=== PATIENT | female | born 1970 | race Caucasian/White ===

== ENCOUNTER 2017-08-17 19:42 | Inpatient (IN) | payer BC, OTHER ==
[~2017-08-17] VITALS: Ht 154.9 cm; Wt 66.2 kg
[~2017-08-17 19:42] MED LIST: NORT25CA PO
[2017-08-17] MEDS ORDERED: LORAZEPAM 1 MG TAB SL STA (19:59)
[2017-08-17 20:13] LABS: BASO % 0.2 %; BASO ABS # 0.03 K/uL (0-0.2); EOS % 1.9 %; EOS ABS # 0.24 K/uL (0-0.5); HEMATOCRIT 39.3 % (37-47); HEMOGLOBIN 14.2 g/dL (12.0-16.0); IG# 0.02 K/uL (0.00-0.02); LYMPH % 33.8 %; LYMPH ABS # 4.21 K/uL (1.2-3.4); MEAN CELL VOLUME 90.3 fL (80-100); MEAN CORPUSCULAR HEMOGLOBIN 32.6 pg (25-34); MEAN CORPUSCULAR HGB CONC 36.1 g/dl (32-36); MEAN PLATELET VOLUME 10.5 fL (7.4-10.4); MONO % 7.7 %; MONO ABS # 0.96 K/uL (0.11-0.59); NEUT % 56.2 %; PLATELET COUNT 277 K/uL (130-400); RED CELL DISTRIBUTION WIDTH SD 42.7 fL (36.4-46.3); WHITE BLOOD COUNT 12.46 K/uL (4.8-10.8)
[2017-08-17 20:49] LABS: ALBUMIN 4.4 gm/dl (3.4-5.0); ALT/SGPT 31 U/L (12-78); AST/SGOT 20 U/L (15-37); BLOOD UREA NITROGEN 9 mg/dl (7-18); CALCIUM 9.3 mg/dl (8.5-10.1); CARBON DIOXIDE 25 mmol/L (21-32); CREATININE 0.82 mg/dl (0.60-1.20); GLUCOSE 93 mg/dl (70-99); POTASSIUM 3.6 mmol/L (3.5-5.1); SODIUM 136 mmol/L (136-145)
[2017-08-17 21:00] LABS: ALKALINE PHOSPHATASE 88 U/L (45-117); TOTAL PROTEIN 8.1 gm/dl (6.4-8.2)
--- NOTE | 2017-08-17 21:02 | DIAGNOSTIC IMAGING REPORT ---
HEAD WITHOUT CONTRAST (CT) CLINICAL HISTORY: 47 years-old Female with Pt c/o AMS. Acute altered mental status TECHNIQUE: Multiple axial CT images of the head were obtained without contrast. A dose lowering technique was utilized adhering to the principles of ALARA. CT DOSE: 801.62 mGy.cm COMPARISON: None. FINDINGS: No acute intracranial hemorrhage, midline shift, intracranial mass, hydrocephalus, territorial ischemia or abnormal extra-axial collection. Exam is mildly motion degraded. The calvarium is intact. The paranasal sinuses, mastoid air cells, and middle ear cavities are clear. IMPRESSION: No acute intracranial abnormality. The above report was generated using voice recognition software. It may contain grammatical, syntax or spelling errors. Electronically signed by: Mark Anthony Arthur M.D. 08/17/2017 9:00 PM Dictated Date/Time: 08/17/2017 8:58 PM
[2017-08-17] MEDS ORDERED: NURSING VERBAL MED ORDER ONE (23:15)
[2017-08-17 23:25] VITALS: O2SAT 98
[2017-08-18] MEDS ORDERED: SODIUM CHLORIDE 0.65% NA SOLN 45 ML (OCEAN) PRN (00:15)
[2017-08-18] MEDS ORDERED: hydrOXYzine HCL 25 MG TAB PO PRN ×2 (00:15)
[2017-08-18] MEDS ORDERED: MAGNESIUM HYDROXIDE SUSP 30 ML UDC PO PRN (00:15)
[2017-08-18] MEDS ORDERED: ALUMINUM/MAGNESIUM SUSP 30 ML UDC PO PRN (00:15)
[2017-08-18] MEDS ORDERED: BISMUTH SUBSALICYLATE PER ML OMNICELL CHARGE PO PRN (00:15)
[2017-08-18] MEDS ORDERED: ACETAMINOPHEN 325 MG TAB PO PRN (00:15)
[2017-08-18 00:24] VITALS: BP 92/59; PULSE 88; TEMP 36.8; Ht 154.9 cm; Wt 66.2 kg
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
[2017-08-18 06:52] VITALS: BP_SYST 103; BP_SYST 88; BP_DIAS 51; BP_DIAS 68; PULSE 85; PULSE 90; TEMP 36.8
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
[2017-08-18 12:24] VITALS: BP 107/71; PULSE 67; TEMP 36.9
--- NOTE | 2017-08-18 12:33 | Psychiatric History & Physical ---
History Date of Service Aug 18, 2017. Identifying Data Ailin Hurtado is a 47-year-old female admitted on Aug 17, 2017 at 23:07 who currently lives in [place]. Ailin Hurtado was admitted on a 302 involuntary commitment. Patient is admitted from home. The patient was brought to the ED by the police, family petitioner. Chief Complaint "I just don't want to think about Bertram anymore". History of Present Illness Ailin has no prior psych history, reports 1 month of primarily visual jacobs and paranoia about a man name Bertram being out to get her. She believes he is stalking her and trying to do her harm as she won't send him anymore money. They had been communicating on line ([employer]) in the fall and she sent him $ 2000 to help his family in [place]. She recognizes that it was a scam and that she'll never see the money again. She states that her kids have "written me off " over it to the level that she didn't interact with them much or socialize over the holidays. She believes that Bertram Farmer is hiding in and around her trailer and has insisted that family help look for him. She believes that he has moved pictures and she has seen him on occasions. She denies auditory jacobs. She denies depression. She endorses anxiety in the context of the paranoid delusions. She denies manic symptoms but hasn't been sleeping well, only 1-2 hours a night. She feels better today having slept last night as "it' s safe here". She understands that she is on a 302 commitment and states she only left the Person (after 2 days) as saw 3 different provider and nothing well helping. She states she did receive a "sleep med" there that may have been Seroquel and is agreeable to sign for records. Interestingly timing of worsening of symptoms/functioning coincides with running out of Lif[employer]. She left her job in Apr and couldn't afford the medication after insurance lapsed in May. Cymbalta was for fibromyalgia by her report. 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 Past Psychiatric History Current OP Treatment: no current treatment Prior OP Treatment: no prior treatment Prior Psych Hospitalizations: [facility] (Jul 2017, AMA) Access to a Gun: No Suicide Attempts: No Past Medication Trials Cymbalta for medical, unsure on dose Past Medical/Surgical History History of Concussion/Seizure: No (1) Fibromyalgia Allergies Allergies: Coded Allergies: Penicillins (Unverified Allergy, Unknown, HIVES, 08/17/17) Home Medications No Active Prescriptions or Reported Meds Family History History of Suicide: No History of Substance Abuse: No Psychiatric History: No Alcohol Use Alcohol Use In Past 12 Months: Yes (avg 3 beers per day, 2x per week) AUDIT Total Score: 10 patient reports stopping following DUI so mixed reports of current use, son notified staff that still drinking Smoking Use Smoking Status: Current Every Day Smoker Substance History denied Personal History Lives in: sister's trailer with step-father Childhood: teen Education: graduated from high school, advanced degree (associates degree in business with HR certification) 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 Examination Physical Examination A physical exam was performed in the ER prior to admission to the unit by Dr. Gtz. I accept that physical as correct/medical clearance for the inpatient physical exam. Vital Signs Vital Signs Past 12 Hours Date Time Temp Pulse Resp B/P (MAP) Pulse Ox O2 Delivery O2 Flow Rate FiO2 08/18/17 06:52 36.8 85 16 88/51 90 103/68 08/18/17 00:24 36.8 88 20 92/59 Laboratory Results Last 24 Hours Test 08/17/17 20:00 08/17/17 20:10 White Blood Count 12.46 K/uL Red Blood Count 4.35 M/uL Hemoglobin 14.2 g/dL Hematocrit 39.3 % Mean Corpuscular Volume 90.3 fL Mean Corpuscular Hemoglobin 32.6 pg Mean Corpuscular Hemoglobin Concent 36.1 g/dl Platelet Count 277 K/uL Mean Platelet Volume 10.5 fL Neutrophils (%) (Auto) 56.2 % Lymphocytes (%) (Auto) 33.8 % Monocytes (%) (Auto) 7.7 % Eosinophils (%) (Auto) 1.9 % Basophils (%) (Auto) 0.2 % Neutrophils # (Auto) 7.00 K/uL Lymphocytes # (Auto) 4.21 K/uL Monocytes # (Auto) 0.96 K/uL Eosinophils # (Auto) 0.24 K/uL Basophils # (Auto) 0.03 K/uL RDW Standard Deviation 42.7 fL RDW Coefficient of Variation 13.0 % Immature Granulocyte % (Auto) 0.2 % Immature Granulocyte # (Auto) 0.02 K/uL Sodium Level 136 mmol/L Potassium Level 3.6 mmol/L Chloride Level 105 mmol/L Carbon Dioxide Level 25 mmol/L Anion Gap 6.0 mmol/L Blood Urea Nitrogen 9 mg/dl Creatinine 0.82 mg/dl Est Creatinine Clear Calc Drug Dose 70.5 ml/min Estimated GFR () 97.4 Estimated GFR (Non- 84.0 BUN/Creatinine Ratio 11.3 Random Glucose 93 mg/dl Calcium Level 9.3 mg/dl Total Bilirubin 0.5 mg/dl Direct Bilirubin < 0.1 mg/dl Aspartate Amino Transf (AST/SGOT) 20 U/L Alanine Aminotransferase (ALT/SGPT) 31 U/L Alkaline Phosphatase 88 U/L Total Protein 8.1 gm/dl Albumin 4.4 gm/dl Thyroid Stimulating Hormone (TSH) 4.100 uIu/ml Ethyl Alcohol mg/dL < 3.0 mg/dl Urine Color YELLOW Urine Appearance CLEAR Urine pH 5.0 Urine Specific Ber[place] 1.017 Urine Protein NEG Urine Glucose (UA) NEG Urine Ketones NEG Urine Occult Blood NEG Urine Nitrite NEG Urine Bilirubin NEG Urine Urobilinogen NEG Urine Leukocyte Esterase NEG Urine Opiates Screen NEG Urine Methadone, Qualitative NEG Urine Barbiturates NEG Urine Phencyclidine (PCP) Level NEG Ur Amphetamine/Methamphetamine NEG MDMA (Ecstasy) Screen NEG Urine Benzodiazepines Screen NEG Urine Cocaine Metabolite NEG Urine Marijuana (THC) NEG Mental Examination During interview pt is: alert and oriented Appearance: appropriately dressed, appropriately groomed Eye contact is: fair Motor behavior is: no abnormal motor movements Speech: normal in rate, rhythm & volume Affect: blunted Mood is: anxious Thought process: clear, coherent Thought content: paranoid, delusions Suicidal thought are: denied Homicidal thoughts are: denied Hallucinations: denies auditory, denies visual Cognition: attention grossly intact, language grossly intact Intelligence estimated to be: consistent with level of education Insight: limited Judgement: limited Impression / Recommendations Impression 47 yo female with no formal psych history presents with paranoid delusions and visual jacobs in the context of suspected ETOH use or withdrawal. differential includes late onset psychosis, mood driven or substance induced psychosis. Inventory Assets Strengths: intelligent, family involvement Needs: family session, outpatient providers Risk Factors Assessment Access to guns: No Protective Factors Assessment Employed: No Recommendations (1) Unspecified psychosis The patient is admitted to [facility] ([facility] mental [facility] unit) on q 15 min checks (behavioral) for safety. The patient will participate in group, recreational and milieu therapies and will be offered additional individual and family sessions as clinically appropriate. metabolic labs in am. patient agreed to a trial of Seroquel to regulate sleep and for psychotic symptoms. Discussion included but was not limited to need for metabolic and TD monitoring. Will monitor BP as tends to run a bit low, if unable to tolerate may need switched to Risperdal, was hoping to minimize EPS given fibromyalgia hx. May use low dose during the day prn anxiety. (2) ETOH abuse The patient's AUDIT score suggests problematic drinking (Zone III WHO). Brief intervention was offered and accepted but limited given delusional. Intervention (if performed) was greater than 5 min in length. Brief interventions include: 1. Assess Readiness to Quit, 2. Advise: Help Patient to Reduce or Abstain from Alcohol, 3. Agree: Set Specific, Feasible Goals, 4. Assist: Anticipate barriers, Problem-Solving Solutions. Social work to 5. Arrange: Referrals to appropriate treatment. Summary of intervention: The patient is in pre-contemplation stage with regards to transtheoretical model of change as minimizes contribution of drinking. The patient is advised to decrease alcohol and nicotine consumption due to depressant effects and risk of interactions with prescription medications. The patient agreed to nicotine patch and will be provided with recovery materials as psychosis clears. She stated ETOH wasn't an issue as can stop and was only drinking with friends, doesn't endorse family's perception of cause of DUI. AWSS protocol. (3) Wrist fracture, right ROEL for records from [facility], PT consult, staff to examine brace to ensure meets safety guidelines as initially believed it was a hard cast. (4) Fibromyalgia risks/benefits/alternatives reviewed re: Cymbalta restart. Will need pcp f/u as hasn't been taking meds/lapse in insurance. (5) Nicotine dependence nicotine patch as 1 PPD, brief intervention as above. CPT Code Initial Hospital Care: [id number]
[2017-08-18] MEDS: NICOTINE 21 MG/24 HR TDSY TD SCH (12:42)
[2017-08-18] MEDS ORDERED: QUETIAPINE FUMARATE 25 MG TAB PO PRN (12:45)
[2017-08-18] MEDS ORDERED: LORAZEPAM 1 MG TAB PO PRN (12:45)
[2017-08-18] MEDS: DULOXETINE (CYMBALTA) 30 MG CAP PO SCH (14:00)
[2017-08-18 16:56] VITALS: BP 107/76; PULSE 88; TEMP 37
[2017-08-18] MEDS ORDERED: QUETIAPINE FUMARATE 25 MG TAB PO SCH (22:00)
[2017-08-19 06:46] VITALS: BP_SYST 90; BP_SYST 93; BP_DIAS 60; BP_DIAS 67; PULSE 73; PULSE 86; TEMP 36.8
[2017-08-19] MEDS: DULOXETINE (CYMBALTA) 30 MG CAP PO SCH (09:00)
[2017-08-19] MEDS: NICOTINE 21 MG/24 HR TDSY TD SCH (09:04)
--- NOTE | 2017-08-19 10:16 | Psychiatric Progress Notes ---
Progress Note Date of Service Aug 19, 2017. Interval History 47 yo woman admitted on a 302 with paranoia, delusions that a man is out to get her. Has been giving money to men she meets on line. Chief Complaint "OK". Subjective Patient was seen & assessed interval progress reviewed with Treatment Team. The patient is adjusting to the unit, and says that she is getting along with her peers. She has been attending groups. Today she reports that her mood is good, but continues to believe that the man, Bertram, is living in her car and is out to "make me crazy". She believes that she hears him get in her car to sleep each night. Her sister Che visited yesterday and told staff of her concerns over Ailin's behaviors, and will not let her return to live in the trailer that is on Che's property. Ailin is aware of this and has talked to her BF who says that she can stay there. Her BF is an alcoholic, by other's description, and Ailin doesn't worry that this will influence her own drinking , which has been a problem. "Just because he drinks doesn't mean I have to.". She still firmly believes that her experiences are real, but willing to consider that they may be part of her mental illness. She denies side effects to meds, and says the Seroquel helped to have a good night's sleep. Nursing reports that she scored a 1 and 0 on the AWSS scale, not requiring prns' Review of Systems Constitutional: + fatigue ENT: No hearing loss, No unusual epistaxis, No nasal symptoms, No sore throat, No tinnitus, No dental problems, No trouble swallowing, No problem reported Respiratory: No cough, No sputum, No wheezing, No shortness of breath, No dyspnea on exertion, No dyspnea at rest, No hemoptysis, No problem reported Cardiovascular: No chest pain, No orthopnea, No PND, No edema, No claudication , No palpitations, No problem reported Abdomen: No pain, No nausea, No vomiting, No diarrhea, No constipation, No GI bleeding, No problem reported Musculoskeletal: No joint pain, No muscle pain, No swelling, No calf pain, No problem reported Neurologic: No memory loss, No paralysis, No weakness, No numbness/tingling, No vertigo, No balance problems, No problem reported Psychiatric: + problem reported (delusions of a man living in her car) Integumentary: No rash, No itch, No new/changing skin lesions, No color change , No bleeding, No problem reported Sleep Information Total Hours of Sleep: 8.25 Meal Information Percent of Breakfast Consumed: 100 Percent of Lunch Consumed: 100 Percent of Dinner Consumed: 100 Mental Status Exam During interview pt is: alert and oriented Appearance: appropriately dressed, appropriately groomed Eye contact is: good Motor behavior is: no abnormal motor movements Speech: normal in rate, rhythm & volume Affect: blunted Mood is: anxious Thought process: clear, coherent Thought content: paranoid, delusions Suicidal thought are: denied Homicidal thoughts are: denied Hallucinations: denies auditory, denies visual Cognition: attention grossly intact, language grossly intact Intelligence estimated to be: consistent with level of education Insight: limited Judgement: limited Impression Adjusting to the support and structure of the milieu, and tolerated first dose of Seroquel. Will increase to 100 mg. tonight to target delusions which remain fixed. Is here on a 302 and will need to continue to gather information toward the need for further inpatient care. Plan (1) Unspecified psychosis The patient is admitted to [facility] ([facility] mental health unit) on q 15 min checks (behavioral) for safety. The patient will participate in group, recreational and milieu therapies and will be offered additional individual and family sessions as clinically appropriate. metabolic labs in am. patient agreed to a trial of Seroquel to regulate sleep and for psychotic symptoms. Discussion included but was not limited to need for metabolic and TD monitoring. Will monitor BP as tends to run a bit low, if unable to tolerate may need switched to Risperdal, was hoping to minimize EPS given fibromyalgia hx. May use low dose during the day prn anxiety. 08/19 - Increase Seroquel to 100 mg. HS (2) ETOH abuse The patient's AUDIT score suggests problematic drinking (Zone III WHO). Brief intervention was offered and accepted but limited given delusional. Intervention (if performed) was greater than 5 min in length. Brief interventions include: 1. Assess Readiness to Quit, 2. Advise: Help Patient to Reduce or Abstain from Alcohol, 3. Agree: Set Specific, Feasible Goals, 4. Assist: Anticipate barriers, Problem-Solving Solutions. Social work to 5. Arrange: Referrals to appropriate treatment. Summary of intervention: The patient is in pre-contemplation stage with regards to transtheoretical model of change as minimizes contribution of drinking. The patient is advised to decrease alcohol and nicotine consumption due to depressant effects and risk of interactions with prescription medications. The patient agreed to nicotine patch and will be provided with recovery materials as psychosis clears. She stated ETOH wasn't an issue as can stop and was only drinking with friends, doesn't endorse family's perception of cause of DUI. AWSS protocol. (3) Wrist fracture, right ROEL for records from [facility], PT consult, staff to examine brace to ensure meets safety guidelines as initially believed it was a hard cast. (4) Fibromyalgia risks/benefits/alternatives reviewed re: Cymbalta restart. Will need pcp f/u as hasn't been taking meds/lapse in insurance. (5) Nicotine dependence nicotine patch as 1 PPD, brief intervention as above. Discharge / Aftercare Planning Primary Care Physician: Name: Dr. Reyes Therapist: Name: John Director Federal: Name: John Visit Code E&M Code: 70646 Inventory Assets Strengths: intelligent, family involvement Needs: family session, outpatient providers Risk Factors Assessment : Yes /single/: Yes Higher / Fall in social status: No Mental Health Diagnoses: No Substance use disorders: Yes Protective Factors Assessment : No Responsible for young children: No Employed: No Stable relationships: No Supportive family: Yes Data Vital Signs Last 24 Hrs: Date Time Temp Pulse Resp B/P (MAP) Pulse Ox O2 Delivery O2 Flow Rate FiO2 08/19/17 06:46 36.8 73 18 93/60 86 90/67 08/18/17 16:56 37.0 88 18 107/76 08/18/17 12:24 36.9 67 107/71 Meds Administered Last 24 Hrs: Meds Administered (Past 24Hrs) Medications (Trade) Dose Ordered Sig/Ejssica Route Start Time Stop Time Status Last Admin Dose Admin Lorazepam (Ativan Tab) 1 mg NOW STAT SL 08/17/17 19:59 08/17/17 20:00 DC 08/17/17 20:45 1 MG Nicotine (Nicoderm Cq 21MG Patch) 1 patch QAM TD 08/19/17 09:00 2/26/18 08:59 08/19/17 09:04 1 PATCH Duloxetine HCl (Cymbalta Cap) 30 mg QAM PO 08/18/17 14:00 09/17/17 13:59 08/19/17 09:00 30 MG Quetiapine Fumarate (seroQUEL TAB) 50 mg HS PO 08/18/17 22:00 09/17/17 21:59 08/18/17 21:23 50 MG Lab Results Last 24 Hrs: Last 24 Hours Test 08/19/17 07:00 Fasting Glucose 101 mg/dl Triglycerides Level 157 mg/dl Cholesterol Level 202 mg/dl HDL Cholesterol 39 mg/dl LDL Cholesterol, Calculated 132 mg/dl VLDL Cholesterol, Calculated 31 mg/dl Cholesterol/HDL Ratio 5.2
[2017-08-19 10:47] VITALS: BP 109/69; PULSE 72; TEMP 36.9
[2017-08-19 12:13] VITALS: BP 107/70; PULSE 66; TEMP 36.7
[2017-08-19 15:55] VITALS: BP 114/77; PULSE 66; TEMP 36.7
[2017-08-19 21:36] VITALS: BP 116/80; PULSE 70; TEMP 36.6
[2017-08-19] MEDS ORDERED: QUETIAPINE FUMARATE 100 MG TAB PO SCH (22:00)
[2017-08-20 06:40] VITALS: BP_SYST 109; BP_SYST 92; BP_DIAS 62; BP_DIAS 68; PULSE 75; TEMP 36.8
[2017-08-20 08:51] VITALS: BP 92/62; PULSE 75; TEMP 36.8
[2017-08-20] MEDS: DULOXETINE (CYMBALTA) 30 MG CAP PO SCH (08:58)
[2017-08-20] MEDS: NICOTINE 21 MG/24 HR TDSY TD SCH (08:58)
--- NOTE | 2017-08-20 10:01 | Psych Management Progress Note ---
Psychiatry Miscellaneous Date of Service: Aug 20, 2017. Patient seen, MS assessed. Rates mood as 9/10 and content. She cooperated with PT this am and has a goal to participate more in group sessions. Encouraged cooperation with care and treatment plan as outlined by allied health prescriber.
[2017-08-20 13:47] VITALS: BP 113/74; PULSE 69; TEMP 36.6
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
[2017-08-20] MEDS: QUETIAPINE FUMARATE 100 MG TAB PO SCH (21:25)
[2017-08-21 06:48] VITALS: BP_SYST 108; BP_SYST 111; BP_DIAS 71; BP_DIAS 72; PULSE 75; PULSE 80; TEMP 36.5
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
[2017-08-21] MEDS: DULOXETINE (CYMBALTA) 30 MG CAP PO SCH (09:02)
[2017-08-21] MEDS: NICOTINE 21 MG/24 HR TDSY TD SCH (09:02)
[2017-08-21] MEDS: QUETIAPINE FUMARATE 100 MG TAB PO SCH (21:01)
[2017-08-22 06:47] VITALS: BP_SYST 102; BP_SYST 92; BP_DIAS 63; BP_DIAS 69; PULSE 65; PULSE 85; TEMP 36.6
[2017-08-22] MEDS: DULOXETINE (CYMBALTA) 30 MG CAP PO SCH (09:13)
[2017-08-22] MEDS: NICOTINE 21 MG/24 HR TDSY TD SCH (09:13)
--- NOTE | 2017-08-22 10:10 | Psychiatric Progress Notes ---
Progress Note Date of Service Aug 22, 2017. Interval History 47 yo woman admitted on a 302 with paranoia, delusions that a man is out to get her. Has been giving money to men she meets on line. Chief Complaint "Good". Subjective Patient was seen & assessed interval progress reviewed with Nursing. Staff report that she has gone back and forth about signing in voluntarily, but ultimately signed in this morning, although she hopes to be discharged soon. She continues to attend groups and participate, and has been talking about her delusional thinking and fears that a man was "after me." Although she had initially agreed to rehabilitation, she is now declining, although she is not sure where she will go at discharge. On my assessment today, she states that mood is improved, and she feels safe here in the hospital. She thinks her thinking is clearer, "I'm getting my head on straight." She spoke with her daughter last night and says she "isn't happy with me, wants me to stay here," and clarified that during their meeting, the family had encouraged her to go to inpatient rehabilitation for her alcoholism, and at the time she had agreed. She continues to state she doesn't want to go to rehabilitation and just wants to go home, but still is not sure where she will be staying. She says her daughter, father, and stepfather have all told her she cannot stay with them, and she has not yet spoken to her boyfriend Rigoberto to see if she can stay with him. It is not clear why she has put off contacting Rigoberto, and says she plans to call him tonight. She thinks that if she cannot stay with him, she will be able to stay with her father, as "he will turn me away." She remains willing for outpatient substance abuse treatment, but her medical assistance has not yet been approved, so aftercare is not arranged. She reports good sleep and appetite, and denies side effects to her medication. Sleep Information Total Hours of Sleep: 6.00 Meal Information Percent of Breakfast Consumed: 100 Percent of Lunch Consumed: 100 Percent of Dinner Consumed: 100 Mental Status Exam During interview pt is: alert and oriented, cooperative Appearance: appropriately dressed, disheveled (hair tangled,wearing the same clothes ) Eye contact is: fair Motor behavior is: steady gait & station, no abnormal motor movements Speech: normal in rate, rhythm & volume Affect: blunted, other (incongruent with stated mood, appears somewhat vacant) Mood is: other ("good") Thought process: goal directed, concrete Thought content: reality based without delusions Suicidal thought are: denied Homicidal thoughts are: denied Hallucinations: denies auditory, denies visual Cognition: attention grossly intact, language grossly intact Intelligence estimated to be: consistent with level of education Insight: limited Judgement: limited Impression Mood and psychotic symptoms improving. Difficult family meeting over the weekend, during which she was confronted about her behavior and substance abuse. Minimizing substance abuse and refusing rehab. None of her family members are willing to allow her to stay with them, as they're concerned about her substance abuse and erratic, unsafe behavior. Medications are helping with mood and psychotic symptoms, and she is working on her discharge plans, including finding a safer place to live (as her boyfriend is an alcoholic and has not been involved in treatment, family concerned he is using her), while referring for outpatient care. We have increased quetiapine to 150 mg. daily. She continues to require inpatient treatment due to the severity of her psychotic symptoms and lack of a safe discharge plan at this time, with high risk of relapse if discharged prematurely. Plan (1) Unspecified psychosis The patient is admitted to [facility] ([facility] unit) on q 15 min checks (behavioral) for safety. The patient will participate in group, recreational and milieu therapies and will be offered additional individual and family sessions as clinically appropriate. metabolic labs in am. patient agreed to a trial of Seroquel to regulate sleep and for psychotic symptoms. Discussion included but was not limited to need for metabolic and TD monitoring. Will monitor BP as tends to run a bit low, if unable to tolerate may need switched to Risperdal, was hoping to minimize EPS given fibromyalgia hx. May use low dose during the day prn anxiety. 08/19 - Increase Seroquel to 100 mg. HS 08/20 - Family meeting held today - Increase Seroquel to 150 mg. HS 08/21 - Continue quetiapine. - Reviewed fasting labs; glucose elevated at 101, triglycerides 157, and cholesterol 202. Will need to follow-up with PCP. - Referred for outpatient psychiatric care. 08/22 - Continue quetiapine and duloxetine. Continue to work on reality testing. - Discharge planning: Would be ideal that she identify a stable place to live , and if she is going to live with boyfriend, that he be involved in her treatment in some capacity, but she has been resistant to this. She will need to be referred for outpatient care, including psychiatry, therapy, and substance abuse treatment. - Patient agreed to sign in voluntarily as her 302 expires tonight. (2) ETOH abuse The patient's AUDIT score suggests problematic drinking (Zone III WHO). Brief intervention was offered and accepted but limited given delusional. Intervention (if performed) was greater than 5 min in length. Brief interventions include: 1. Assess Readiness to Quit, 2. Advise: Help Patient to Reduce or Abstain from Alcohol, 3. Agree: Set Specific, Feasible Goals, 4. Assist: Anticipate barriers, Problem-Solving Solutions. Social work to 5. Arrange: Referrals to appropriate treatment. Summary of intervention: The patient is in pre-contemplation stage with regards to transtheoretical model of change as minimizes contribution of drinking. The patient is advised to decrease alcohol and nicotine consumption due to depressant effects and risk of interactions with prescription medications. The patient agreed to nicotine patch and will be provided with recovery materials as psychosis clears. She stated ETOH wasn't an issue as can stop and was only drinking with friends, doesn't endorse family's perception of cause of DUI. AWSS protocol. 08/21 - not scoring on AWSS, so has been discontinued. She continues to minimize her drinking, frequently stating that she has been sober for months, despite being confronted by family yesterday and admitting that she has been drinking heavily and regularly. She is now refusing recommendations for inpatient rehabilitation, but is willing to consider outpatient treatment. Will refer to [facility]. She is stating that she will likely be living with her alcoholic boyfriend after discharge, and shows very poor insight into the risks of relapsing in this environment. (3) Wrist fracture, right ROEL for records from [facility], PT consult, staff to examine brace to ensure meets safety guidelines as initially believed it was a hard cast. (4) Fibromyalgia risks/benefits/alternatives reviewed re: Cymbalta restart. Will need pcp f/u as hasn't been taking meds/lapse in insurance. (5) Nicotine dependence nicotine patch as 1 PPD, brief intervention as above. Discharge / Aftercare Planning Primary Care Physician: Name: Dr. Cristian Reyes Date of Appointment: Aug 29, 2017 Time of Appointment: 12:45 Psychiatrist: Name: Carlos Alberto Appointment Notes: Please call when MA is approved Therapist: Name: Tony Keita ext. [phone] Date of Appointment: Aug 25, 2017 Time of Appointment: 1:00 pm Appointment Notes: [address] [place] [id number] [facility] Care Physical Therapist: Name: John Visit Code E&M Code: 67747 Inventory Assets Strengths: intelligent, family involvement Needs: family session, outpatient providers Risk Factors Assessment : Yes /single/: Yes Higher / Fall in social status: No Mental Health Diagnoses: No Substance use disorders: Yes Protective Factors Assessment : No Responsible for young children: No Employed: No Stable relationships: No Supportive family: Yes Data Vital Signs Last 24 Hrs: Date Time Temp Pulse Resp B/P (MAP) Pulse Ox O2 Delivery O2 Flow Rate FiO2 08/22/17 06:47 36.6 65 16 102/69 85 92/63 Meds Administered Last 24 Hrs: Meds Administered (Past 24Hrs) Medications (Trade) Dose Ordered Sig/Jessica Route Start Time Stop Time Status Last Admin Dose Admin Quetiapine Fumarate (seroQUEL TAB) 150 mg HS PO 08/20/17 22:00 09/19/17 21:59 08/21/17 21:01 150 MG
[2017-08-22] MEDS: QUETIAPINE FUMARATE 100 MG TAB PO SCH (21:00)
[2017-08-23 07:00] VITALS: BP_SYST 75; BP_SYST 90; BP_DIAS 45; BP_DIAS 58; PULSE 75; PULSE 84; TEMP 36.8
[2017-08-23] MEDS: NICOTINE 21 MG/24 HR TDSY TD SCH (09:00)
--- NOTE | 2017-08-23 09:06 | Discharge Instructions ---
Discharge Information Report Includes Report will include the: Discharge Instructions & Summary Admission Admission Date / Time: Aug 17, 2017 at 23:07 Reason for Admission: Psychosis, Nos Discharge Discharge Diagnosis / Problem: Psychosis not otherwise specified Condition at Discharge: Fair Discharge Goals Goal(s): Improve function, Improve disease control, Learn about illness, Therapeutic intervention, Specific goals (We recommended you go to inpatient rehab for treatment of alcohol abuse, but you declined.) Activity Recommendations Activity Limitations: per Instructions/Follow-up section . Instructions / Follow-Up Instructions / Follow-Up . SPECIAL CARE INSTRUCTIONS: 1. Follow through with your scheduled aftercare appointments. If unable to keep an appointment, please call to reschedule. As your insurance has not been approved yet, we could not make referrals for outpatient psychiatry or substance abuse treatment. Once your medical assistance is approved, you should call Carlos Alberto to schedule your intake appointment. In the meantime, you can follow up with your PCP for medications, and at [facility] for counseling. 2. Take your medication only as prescribed. Medication should not be changed or stopped without the approval of your doctor. In the event of worsening symptoms or concerns about side effects, contact your doctor immediately. 3. Utilize new healthy coping skills, anger management skills, and stress management skills learned during your hospitalization. Journal feelings and process them with a support person. Identify stressors or situations that may result in relapse, deterioration or inappropriate behaviors and develop a plan to deal with those issues. 4. If your coping skills are ineffective and you are in crisis, contact your outpatient providers for direction. If unable to reach your providers, please call the CAN HELP LINE AT or go to the closest Emergency Room. 5. You should not drink alcohol or take un-prescribed drugs. If you are not able to stay sober, we recommend you pursue inpatient rehab/substance abuse treatment. 6. You have been provided with the Mental Health Advance Directives Pamphlet for your review. AFTERCARE APPOINTMENTS: * Please call your insurance company prior to your scheduled appointment to confirm your aftercare providers are covered. Take your insurance information to your appointments. . Discharge / Aftercare Planning Primary Care Physician: Name: Dr. Cristian Reyes Date of Appointment: Aug 29, 2017 Time of Appointment: 12:45 pm Psychiatrist: Name: Carlos Alberto Appointment Notes: Please call when MA is approved Therapist: Name Of Therapist: Uatsdin Shamasherwin ext. [phone] Date of Appointment: Aug 25, 2017 Time of Appointment: 1:00 pm Appointment Comments: [address] [facility] [place] [id number] [place]: Name: [facility]: Home Health Services: none . Follow-Up Care Plan for Follow-Up Care: See above. Current Hospital Diet Patient's current hospital diet: Regular Diet Discharge Diet Recommended Diet: Regular Diet Procedures Procedures Performed: No Pending Studies Pending Studies at Discharge: No Medical Emergencies . Who to Call and When: Medical Emergencies: For questions or emergencies related to your hospital stay, please contact the Inpatient Behavioral Health Unit at [phone]. A receptionist clerk is on-call 13/02 for the Behavioral Health Unit for emergencies At any time you feel your situation is an emergency, you may also call 911 immediately. . Non-Emergent Contact Non-Emergency issues call your: Primary Care Provider, Psychiatrist, Therapist Past History Medical & Surgical History: (1) Fibromyalgia (2) Nicotine dependence Advance Directives Existing Advance Directive: No Do You Have an Existing Mental: No Existing Living Will: No Existing Power of Transportation Technician: No Advance Directives Info Given: To Pt/S.O. Advance Directives Reason: Declines as Mental Health Visit. Discharge Summary Admission HPI Per the Admitting provider: Ailin has no prior psych history, reports 1 month of primarily visual jacobs and paranoia about a man name Bertram being out to get her. She believes he is stalking her and trying to do her harm as she won't send him anymore money. They had been communicating on line ([employer]) in the fall and she sent him $ 2000 to help his family in [place]. She recognizes that it was a scam and that she'll never see the money again. She states that her kids have "written me off " over it to the level that she didn't interact with them much or socialize over the holidays. She believes that Bertram Farmer is hiding in and around her trailer and has insisted that family help look for him. She believes that he has moved pictures and she has seen him on occasions. She denies auditory jacobs. She denies depression. She endorses anxiety in the context of the paranoid delusions. She denies manic symptoms but hasn't been sleeping well, only 1-2 hours a night. She feels better today having slept last night as "it' s safe here". She understands that she is on a 302 commitment and states she only left the Person (after 2 days) as saw 3 different provider and nothing well helping. She states she did receive a "sleep med" there that may have been Seroquel and is agreeable to sign for records. Interestingly timing of worsening of symptoms/functioning coincides with running out of [employer]. She left her job in Apr and couldn't afford the medication after insurance lapsed in May. Cymbalta was for fibromyalgia by her report. 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 Admission Exam Per the Admitting provider: Please see admission H&P. Consultations None. Hospital Course (1) Unspecified psychosis The patient is admitted to [facility] ([facility] mental [facility]) on q 15 min checks (behavioral) for safety. The patient will participate in group, recreational and milieu therapies and will be offered additional individual and family sessions as clinically appropriate. metabolic labs in am. patient agreed to a trial of Seroquel to regulate sleep and for psychotic symptoms. Discussion included but was not limited to need for metabolic and TD monitoring. Will monitor BP as tends to run a bit low, if unable to tolerate may need switched to Risperdal, was hoping to minimize EPS given fibromyalgia hx. May use low dose during the day prn anxiety. 08/19 - Increase Seroquel to 100 mg. HS 08/20 - Family meeting held today - Increase Seroquel to 150 mg. HS 08/21 - Continue quetiapine. - Reviewed fasting labs; glucose elevated at 101, triglycerides 157, and cholesterol 202. Will need to follow-up with PCP. - Referred for outpatient psychiatric care. 08/22 - Continue quetiapine and duloxetine. Continue to work on reality testing. - Discharge planning: Would be ideal that she identify a stable place to live , and if she is going to live with boyfriend, that he be involved in her treatment in some capacity, but she has been resistant to this. She will need to be referred for outpatient care, including psychiatry, therapy, and substance abuse treatment. - Patient agreed to sign in voluntarily as her 302 expires tonight. 08/23 - Patient denying paranoia, hallucinations, and delusions. She is requesting discharge and denies safety concerns with leaving the hospital. - Continue quetiapine 150mg qhs. - F/u with PCP until insurance approved and can schedule intake at [facility] for psychiatry and substance abuse counseling. - Reviewed ways to reality check, healthy coping skills she's been working on here, and her discharge safety plan. - Have recommended that her boyfriend whom she may be living with at discharge be involved in treatment, but she declined. He is not necessarily a good support, but family is refusing to allow her to stay with them, and she hopes to stay with BF only temporarily until she can get her own apartment. (2) ETOH abuse The patient's AUDIT score suggests problematic drinking ([place] WHO). Brief intervention was offered and accepted but limited given delusional. Intervention (if performed) was greater than 5 min in length. Brief interventions include: 1. Assess Readiness to Quit, 2. Advise: Help Patient to Reduce or Abstain from Alcohol, 3. Agree: Set Specific, Feasible Goals, 4. Assist: Anticipate barriers, Problem-Solving Solutions. Social work to 5. Arrange: Referrals to appropriate treatment. Summary of intervention: The patient is in pre-contemplation stage with regards to transtheoretical model of change as minimizes contribution of drinking. The patient is advised to decrease alcohol and nicotine consumption due to depressant effects and risk of interactions with prescription medications. The patient agreed to nicotine patch and will be provided with recovery materials as psychosis clears. She stated ETOH wasn't an issue as can stop and was only drinking with friends, doesn't endorse family's perception of cause of DUI. AWSS protocol. 08/21 - not scoring on AWSS, so has been discontinued. She continues to minimize her drinking, frequently stating that she has been sober for months, despite being confronted by family yesterday and admitting that she has been drinking heavily and regularly. She is now refusing recommendations for inpatient rehabilitation, but is willing to consider outpatient treatment. Will refer to [place]. She is stating that she will likely be living with her alcoholic boyfriend after discharge, and shows very poor insight into the risks of relapsing in this environment. (3) Wrist fracture, right ROEL for records from [facility], PT consult, staff to examine brace to ensure meets safety guidelines as initially believed it was a hard cast. (4) Fibromyalgia risks/benefits/alternatives reviewed re: Cymbalta restart. Will need pcp f/u as hasn't been taking meds/lapse in insurance. 08/23 - Continue duloxetine 30mg daily and f/u with PCP. Recommend regular physical activity/exercise. (5) Nicotine dependence nicotine patch as 1 PPD, brief intervention as above. 08/23 - Smoking cessation education provided, and Rx for nicotine patch issued. F /u with PCP for ongoing smoking cessation education and treatment. Risk Factors Assessment : Yes /single/: Yes Higher / Fall in social status: No Health problems: Yes Mental Health Diagnoses: Yes Substance use disorders: Yes Previous attempt: No Family history of suicide: No Previous psychiatric stay: No Hopelessness: No Smoker: Yes Protective Factors Assessment Muslim beliefs: No : No Responsible for young children: No Employed: No Stable relationships: No Supportive family: Yes Good rapport with provider: Yes Absence of risk factors above: Yes (risk factors mitigated by admission to the inpatient unit, use of medications to target pain syndrome and psychosis, education about her diagnosis and recommended treatment, attending and participating in groups and therapy on the unit, working on healthy coping skills, reality testing, and a discharge safety plan, family meeting with her sister, daughter, and son, recommendations that she have a family meeting with her boyfriend whom she plans to stay with after discharge (which she refused), education about the risks of substance abuse and the recommendations for abstinence, review of recommendations for inpatient rehabilitation which she refused, and referral for outpatient follow-up. The patient psychotic symptoms have resolved, she is tending to her ADLs, taking medications as prescribed, and willing to follow-up with outpatient providers. She is consistently denied thoughts of harming herself or others and has not been violent or aggressive here. She is requesting discharge, and she is no longer at acute risk of harm to herself or others, can be discharged and managed as an outpatient at this time.) Day of Discharge Assessment Hospital course: On admission, the patient was restarted on duloxetine for fibromyalgia, which she had stopped due to losing insurance and not following up as an outpatient. She was started on quetiapine for new onset psychotic symptoms, and the dose was increased to 150 mg at bedtime which she tolerated well. Her psychotic symptoms resolved, and she demonstrated improved insight into these, stating that she felt reassured by talking to her family and hearing that none of them had seeing the man that she believed was hiding around her trailer. She denied hallucinations while in the hospital, and her paranoia resolved. Her sleep improved in the hospital, she demonstrated good appetite, and was able to perform her ADLs independently. She attended and participated in groups appropriately, and was able to work on healthy coping skills, ways to reality test, and her safety plan. She had a meeting with her sister, daughter, and son and they confronted her about her drinking, as the patient had repeatedly stated that she was sober, but family said she had been drinking heavily, going to bars on a regular basis, and that her alcohol abuse had caused significant problems including loss of her career and her family. They described her boyfriend as an alcoholic who uses her for sex, and said that she had been sending money to men she met online who were scamming her. The patient admitted that she knew she was being scammed, but continued in these behaviors as she felt alone. Her family was very concerned that this could be potentially dangerous, and said she was not able to come and stay with them after discharge because of their concerns about her behavior. They wanted her to pursue inpatient substance abuse treatment, which she initially agreed to consider, but later refused. Her family also confirmed that she does not of access to guns. She denied symptoms consistent with depression or gustavo throughout her stay. She was encouraged to involve her boyfriend, Rigoberto, as she was planning to stay with him after discharge, but declined to do so. She did not even contact him to confirm that she could actually stay with him, despite staff encouragement. Although she agreed that her alcohol use was a problem and that she should stop drinking, she was poorly able to describe a plan to do this, especially in light of her plan to go and stay with her alcoholic boyfriend after discharge. She tolerated her medications well and felt they were helpful. She signed in voluntarily at the conclusion of her 302 involuntary commitment. Day of discharge assessment: The patient reports her mood is "good," and denies any thoughts of harming herself or anyone else. She denies concerns about her mood, symptoms of anxiety , hallucinations, and paranoia. She continues to state that she recognizes that the thoughts she had prior to admission were not based in reality, and no longer believes that there was a man hiding in or around her trailer or trying to harm her. She states that if these thoughts recur, she would talk with her family for reality testing or call her outpatient provider. She feels her medications are helpful and denies side effects to them. We reviewed her discharge plan, including medications and aftercare, and that she will follow up with her PCP until she gets medical assistance, and can then schedule an intake at [facility] for substance abuse counseling and to see a psychiatrist. We also reviewed the risks of continued alcohol abuse, the recommendations for abstinence, and encouraged her to pursue inpatient rehabilitation if she is not successful in abstaining from alcohol. She denies any safety concerns with discharge, and states that her father will be picking her up today. She says she still has not spoken to her boyfriend Rigoberto, and says that if she cannot stay with him for some reason, she will ask her father to stay with him, and says that she is not concerned about finding a place to stay. She hopes to eventually get her own apartment, and has applied for low income housing. Well nourished, well developed WF appearing stated age. Casually dressed and adequately groomed, hair somewhat tangled and disheveled. Calm and cooperative. Seated in NAD, with fair eye contact and no abnormal movements. Speech is normal rate, volume, and tone. Mood is "good," and affect is stable and congruent. Thoughts are linear, logical and goal directed. The patient denied suicidal and homicidal ideation and was able to review her safety plan. No paranoia, delusions, or hallucinations, and did not appear to be responding to internal stimuli. Cognition was grossly intact. Alert and oriented to person, place and time. Intelligence is consistent with level of education. Insight and and judgment are fair. Laboratory Test 08/17/17 20:00 08/17/17 20:10 08/19/17 07:00 White Blood Count 12.46 Red Blood Count 4.35 Hemoglobin 14.2 Hematocrit 39.3 Mean Corpuscular Volume 90.3 Mean Corpuscular Hemoglobin 32.6 Mean Corpuscular Hemoglobin Concent 36.1 Platelet Count 277 Mean Platelet Volume 10.5 Neutrophils (%) (Auto) 56.2 Lymphocytes (%) (Auto) 33.8 Monocytes (%) (Auto) 7.7 Eosinophils (%) (Auto) 1.9 Basophils (%) (Auto) 0.2 Neutrophils # (Auto) 7.00 Lymphocytes # (Auto) 4.21 Monocytes # (Auto) 0.96 Eosinophils # (Auto) 0.24 Basophils # (Auto) 0.03 RDW Standard Deviation 42.7 RDW Coefficient of Variation 13.0 Immature Granulocyte % (Auto) 0.2 Immature Granulocyte # (Auto) 0.02 Sodium Level 136 Potassium Level 3.6 Chloride Level 105 Carbon Dioxide Level 25 Anion Gap 6.0 Blood Urea Nitrogen 9 Creatinine 0.82 Est Creatinine Clear Calc Drug Dose 70.5 Estimated GFR () 97.4 Estimated GFR (Non- 84.0 BUN/Creatinine Ratio 11.3 Random Glucose 93 Calcium Level 9.3 Total Bilirubin 0.5 Direct Bilirubin < 0.1 Aspartate Amino Transferase (AST) 20 Alanine Aminotransferase (ALT) 31 Alkaline Phosphatase 88 Total Protein 8.1 Albumin 4.4 Thyroid Stimulating Hormone (TSH) 4.100 Ethyl Alcohol mg/dL < 3.0 Urine Color YELLOW Urine Appearance CLEAR Urine pH 5.0 Urine Specific [place] 1.017 Urine Protein NEG Urine Glucose (UA) NEG Urine Ketones NEG Urine Occult Blood NEG Urine Nitrite NEG Urine Bilirubin NEG Urine Urobilinogen NEG Urine Leukocyte Esterase NEG Urine Opiates Screen NEG Urine Methadone, Qualitative NEG Urine Barbiturates NEG Urine Phencyclidine (PCP) Level NEG Ur Amphetamine/Methamphetamine NEG MDMA (Ecstasy) Screen NEG Urine Benzodiazepines Screen NEG Urine Cocaine Metabolite NEG Urine Marijuana (THC) NEG Fasting Glucose 101 Triglycerides Level 157 Cholesterol Level 202 HDL Cholesterol 39 LDL Cholesterol, Calculated 132 VLDL Cholesterol, Calculated 31 Cholesterol/HDL Ratio 5.2 Total Time Total Time Spent (min): Greater than 30 minutes Total Time Included: examination of the patient, discharge planning, medication reconciliation Tobacco Cessation at Discharge Smoking Status: Current Every Day Smoker FDA approved Prescription: nicotine replacement product
[2017-08-23] MEDS ORDERED: CYM30 PO (09:07)
[2017-08-23] MEDS ORDERED: NICO21DI4 TD (09:07)
[2017-08-23] MEDS ORDERED: SRQ/100 PO (09:07)
[2017-08-23] MEDS: DULOXETINE (CYMBALTA) 30 MG CAP PO SCH (09:22)
== END 2017-08-23 11:29 | disposition home or self-care (01) | DRG 885 ==
LOC: C.EDB 19:42 → C.MHU 23:07
PROVIDERS: ADMIT Psychiatry & Neurology Psychiatry; ATTEND Psychiatry & Neurology Psychiatry
DX: F29 Unspecified psychosis not due to a substance or known physiological condition (principal); F10.10 Alcohol abuse, uncomplicated; S62.101D Fracture of unspecified carpal bone, right wrist, subsequent encounter for fracture with routine healing; X58.XXXD Exposure to other specified factors, subsequent encounter; M79.7 Fibromyalgia; F17.200 Nicotine dependence, unspecified, uncomplicated; Z91.120 Patient's intentional underdosing of medication regimen due to financial hardship